=== PATIENT | male | born 1975 | race Caucasian/White ===

== ENCOUNTER 2021-03-02 09:42 | Emergency (ER) | payer MEDICAID, SELFPAY ==
[~2021-03-02] VITALS: Ht 172.7 cm; Wt 86.2 kg
[2021-03-02 09:50] VITALS: BP_SYST 128
[2021-03-02] MEDS ORDERED: IBUP-1969 PO (10:06)
[2021-03-02] MEDS ORDERED: AMOX-426 PO (10:06)
[2021-03-02 10:28] VITALS: BP_SYST 137
== END 2021-03-02 10:29 | disposition home or self-care (01) ==
LOC: SED 09:42
DX: J02.9 Acute pharyngitis, unspecified (principal); Z20.822 Contact with and (suspected) exposure to COVID-19
CPT/HCPCS: 99283; C9803; U0003

== ENCOUNTER 2022-04-14 13:20 | Emergency (ER) | payer MEDICAID ==
[~2022-04-14] VITALS: Ht 167.6 cm; Wt 89.8 kg
[~2022-04-14 13:20] MED LIST: AMOX-426 PO; IBUP-1969 PO
[2022-04-14 14:00] VITALS: BP_SYST 117
--- NOTE | 2022-04-14 14:00 | NUR ---
Patient to ER bed TENT 1 to gown for evaluation. Side rails up. ASSUMED CARE
--- NOTE | 2022-04-14 14:15 | NUR ---
PT C/O COVID SYMPTOMS.
[2022-04-14] MEDS ORDERED: ACETAMINOPHEN 500 MG TABLET PO ONE (14:30)
--- NOTE | 2022-04-14 14:45 | NUR ---
ER at bedside examining patient.
[2022-04-14 16:00] VITALS: BP_SYST 120
--- NOTE | 2022-04-14 16:00 | NUR ---
Patient given written and verbal discharge instructions and verbalizes understanding. ER MD discussed with patient the results and treatment provided. Patient in stable condition. ID arm band removed. Rx of given. Patient educated on pain management and to follow up with PMD. Pain Scale 2. Opportunity for questions provided and answered. Medication side effect fact sheet provided.
== END 2022-04-14 16:00 | disposition home or self-care (01) ==
LOC: SED 13:20
DX: U07.1 COVID-19 (principal); B34.9 Viral infection, unspecified
CPT/HCPCS: 36415; 99283

== ENCOUNTER 2022-09-11 21:22 | Emergency (ER) | payer MEDICAID ==
[~2022-09-11] VITALS: Ht 167.6 cm; Wt 77.1 kg
[2022-09-11 21:27] VITALS: BP_SYST 142
--- NOTE | 2022-09-11 21:32 | NUR ---
PT HERE ACCOMPANIED BY HIS SON C/O DIZZINESS X2 HRS. PT DENIES HEADACHE, DENIES N/V/D. NO LOCAL NEURO NOTED. DENIES BLURRY VISION. PMH;DENIES PT AAOX4, NO SOB NOTED AND NAD. PENDING MD DÍAZ
--- NOTE | 2022-09-11 22:25 | NUR ---
ER at bedside examining patient.
[2022-09-11] MEDS ORDERED: NACL 0.9% 1,000 ML IV ONE (22:30)
[2022-09-11] MEDS ORDERED: METOCLOPRAMIDE HCL 10 MG/2 ML VIAL IVP ONE (22:30)
[2022-09-11] MEDS ORDERED: MECLIZINE HCL 25 MG TABLET (ANITVERT) PO ONE (22:30)
--- NOTE | 2022-09-11 22:30 | NUR ---
# 20 gauge angiocath placed to R AC. Use of asceptic technique. Opsite placed over site. Blood return noted. Flushed with 10 cc of normal saline. No evidence of infiltration noted. Patient tolerated well.
[2022-09-11 22:40] LABS: BASOPHILS # (AUTO) 0.1 K/uL (0.0-0.2); BASOPHILS % (AUTO) 1.2 % (0.0-2.0); EOSINOPHILS # (AUTO) 0.2 K/uL (0.0-0.4); EOSINOPHILS % (AUTO) 1.7 % (0.0-4.0); HEMOGLOBIN 14.6 g/dL (14.0-18.0); LYMPHOCYTES # (AUTO) 1.8 K/uL (1.0-5.5); LYMPHOCYTES % (AUTO) 18.8 % (20.5-51.5); MEAN CORPUSCULAR HEMOGLOBIN 31 pg (27-31); MEAN CORPUSCULAR HGB CONC 35 % (32-36); MEAN CORPUSCULAR VOLUME 88 fL (79.0-98.0); MONOCYTES # (AUTO) 0.6 K/uL (0.0-1.0); MONOCYTES % (AUTO) 6.5 % (1.7-9.3); NEUTROPHILS # (AUTO) 6.9 K/uL (1.8-7.7); NEUTROPHILS % (AUTO) 71.8 % (40.0-70.0); PLATELET COUNT (AUTO) 214 K/uL (130-430); RED BLOOD CELL COUNT(AUTO) 4.78 MIL/uL (4.2-6.2); RED CELL DISTRIBUTION WIDTH 12.9 % (9.0-15.0); WHITE BLOOD COUNT (AUTO) 9.6 K/uL (4.8-10.8)
[2022-09-11 22:56] LABS: ANION GAP 4 (5-15); CALCIUM 9.1 mg/dL (8.4-11.0); CHLORIDE 103 mmol/L (98-107); CREATININE 0.75 mg/dL (0.55-1.30); GLUCOSE 124 mg/dL (70-99); POTASSIUM 3.6 mmol/L (3.5-5.1); UREA NITROGEN, BLOOD 18 mg/dL (8-21)
[2022-09-11 23:05] LABS: ALANINE AMINOTRANSFERASE 40 U/L (12-78); ALBUMIN 3.7 g/dL (3.4-4.8); ASPARTATE AMINOTRANSFERASE 21 U/L (10-37); TOTAL BILIRUBIN 0.1 mg/dL (0.0-1.0)
[2022-09-11 23:08] LABS: GFR AFRICAN AMERICAN 144 mL/min (>90)
[2022-09-12] MEDS ORDERED: MECL-160 PO (00:09)
[2022-09-12 00:33] VITALS: BP_SYST 125
--- NOTE | 2022-09-12 00:33 | NUR ---
Patient given written and verbal discharge instructions and verbalizes understanding. ER MD discussed with patient the results and treatment provided. Patient in stable condition. IV catheter removed intact and dressing applied, no active bleeding.Rx of Meclizine sent to Pharmacy of choice by ER MD. Patient educated on pain management and to follow up with PMD. Opportunity for questions provided and answered.
== END 2022-09-12 00:33 | disposition home or self-care (01) ==
LOC: SED 21:22
DX: R42 Dizziness and giddiness (principal); R11.0 Nausea; Z79.899 Other long term (current) drug therapy
CPT/HCPCS: 99284; 96374; 96361; 80053; 85025; 84484; 36415; 93005; J8597; J2765; J7030

== ENCOUNTER 2023-05-05 15:43 | Emergency (ER) | payer MEDICAID ==
[~2023-05-05] VITALS: Ht 165.1 cm; Wt 81.6 kg
[~2023-05-05 15:43] MED LIST changes: +MECL-160 PO
[2023-05-05] MEDS ORDERED: KETOROLAC TROMETHAMINE 60 MG/2 ML VIAL IM ONE (16:15)
[2023-05-05] MEDS ORDERED: AMOXICILLIN/POTASSIUM CLAV 875 MG TABLET PO ONE (18:15)
[2023-05-05] MEDS ORDERED: FLUT16SP16 NS (18:20)
[2023-05-05] MEDS ORDERED: IBUP-1971 PO (18:20)
[2023-05-05] MEDS ORDERED: AUG875 PO (18:20)
[2023-05-05 18:34] VITALS: BP_SYST 148
== END 2023-05-05 18:34 | disposition home or self-care (01) ==
LOC: SED 15:43
DX: J01.00 Acute maxillary sinusitis, unspecified (principal); J01.20 Acute ethmoidal sinusitis, unspecified; R68.84 Jaw pain; R51.9 Headache, unspecified; Z79.899 Other long term (current) drug therapy
CPT/HCPCS: 99285; 70450; 70486; 76376; 96372; J1885